=== PATIENT | male | born 1965 | race Caucasian/White ===

== ENCOUNTER → 2016-11-02 | Day surgery (SDC) | payer BC ==
[~2016-11-02] MED LIST: CLONAZEPAM0.5 MG PO; DULOXETINE HCL60 M1 PO; HUMIRA20 MG/0.1; HYDROCHLOROTHIA25 MG PO; HYDROXYZINE HCL10 MG PO; LOSARTAN POTASS50 MG PO; METHOTREXATE2.5 MG PO
--- NOTE | ~2016-11-02 | OR ---
Unit #: [id number] #: [id number] Patient: MASON RIVERA [id number] [facility] [address] [facility] [address] [id number] O MR#: [id number] NAME: MASON RIVERA ROOM: Date of Procedure: 11/02/2016 Admission Date: 11/02/2016 Surgeon: Eleno Joe M.D. : 1965 Attending Physician: Eleno Joe M.D. Primary Care Physician: Brittany Herrmann A.P.R.N. OPERATIVE REPORT PRIMARY CARE PHYSICIAN Dr. Eleno Bojorquez. PREOPERATIVE DIAGNOSIS Colorectal cancer screening. POSTOPERATIVE DIAGNOSIS Single diverticulum in the sigmoid colon. PROCEDURE PERFORMED Colonoscopy to cecum. ANESTHESIA Monitored anesthesia. INDICATIONS FOR PROCEDURE A 51-year-old gentleman sent for initial colorectal cancer screening. DESCRIPTION OF PROCEDURE The patient was admitted to [facility], positively identified, transported to the endoscopy suite and after appropriate monitoring and positioning, he was sedated by the nurse aquatic biologist. On rectal examination, there was no local anorectal pathology. Digital exam was unremarkable. On examination, the prostate revealed a normal prostate. Colonoscope was passed through the anal verge throughout the extent of the colon to the cecum where the appendiceal orifice and ileocecal valve were photo-documented. On careful antegrade and retrograde visualization, no polyps, masses, or other mucosal lesions were noted throughout the colon. In the sigmoid colon, approximately 25 cm from the anal verge, there was a single small diverticulum. The rest of the evaluation was unremarkable. In the rectal vault, I retroflexed the scope and there was no internal hemorrhoidal disease. The patient tolerated the procedure well and was transported to recovery in stable condition. Findings were discussed with his family. At this time, I would recommend a routine surveillance colonoscopy for colorectal cancer screening in 10 years if he remains asymptomatic in the interim. Dictated by... Eleno Joe M.D. RS/modl Unit #: [id number] #: [id number] Patient: MASON RIVERA TD: 11/02/2016 17:03 JOB #: [id number] OPERATIVE REPORT Page 1 of 1 X Eleno Joe MD PROCEDURE OPERATIVE NOTE
--- NOTE | ~2016-11-02 | HP ---
Unit #: [id number] #: [id number] Patient: MASON LARSON [id number] [address] [address] [id number] O MR#: [id number] NAME: MASON LARSON ROOM: Age: 51 Sex: M Admission Date: 11/02/2016 : 1965 Attending Physician: Eleno Joe M.D. Primary Care Physician: Brittany Herrmann A.P.R.N. HISTORY AND PHYSICAL PRIMARY CARE PHYSICIAN Dr. Eleno Bojorquez. HISTORY OF PRESENT ILLNESS Mr. Larson is a 51-year-old gentleman sent for his initial colorectal cancer screening. He denies a family history of colorectal disease, otherwise, asymptomatic. PAST MEDICAL HISTORY Hypertension, osteoarthritis, depression, anxiety. He has sleep apnea and uses a CPAP. He has had previous surgery on his shoulder, knee and ankle. PAST SURGICAL HISTORY He has had previous surgery on his shoulder, knee and ankle. SOCIAL HISTORY , two children, rarely drinks alcohol. He chews tobacco. he works as a chief of police. FAMILY HISTORY Congestive heart failure. ALLERGIES No allergies to medication. MEDICATION 1. Methotrexate. 2. Hydroxyzine. 3. Clonazepam. 4. Losartan. 5. Hydrochlorothiazide. 6. Duloxetine. IMMUNIZATIONS Up to date but he has not had a recent flu vaccine or a pneumonia vaccine. REVIEW OF SYSTEMS Unremarkable. PHYSICAL EXAMINATION GENERAL APPEARANCE: He is awake, alert and oriented. VITAL SIGNS: He is 6'1", 330 lb. Blood pressure is 110/66. Heart rate 47. Respiration 16. Temperature 98.3. HEENT: Unremarkable. Unit #: [id number] #: [id number] Patient: MASON LARSON CARDIAC: Regular rate and rhythm. LUNGS: Clear. ABDOMEN: Soft. EXTREMITIES: No edema. NEUROLOGIC: Grossly intact. ASSESSMENT AND PLAN 51-year-old gentleman sent for initial screening colonoscopy for colorectal cancer screening. I discussed the procedure including risks, benefits, complications, bowel prep. He understands and agrees to proceed. Dictated by Eleno Joe M.D. SHELBIE/sally TD: 11/02/2016 07:50 JOB #: [id number] HISTORY AND PHYSICAL Page 1 of 1 X Eleno Joe MD HISTORY AND PHYSICAL
== END | disposition home or self-care (01) ==
LOC: COPS 05:15
DX: Z12.11 Encounter for screening for malignant neoplasm of colon (principal); K57.30 Diverticulosis of large intestine without perforation or abscess without bleeding; I10 Essential (primary) hypertension; M19.90 Unspecified osteoarthritis, unspecified site; G47.30 Sleep apnea, unspecified; M06.9 Rheumatoid arthritis, unspecified; F41.9 Anxiety disorder, unspecified; F32.9 Major depressive disorder, single episode, unspecified; F17.220 Nicotine dependence, chewing tobacco, uncomplicated; Z79.899 Other long term (current) drug therapy; Z98.890 Other specified postprocedural states
CPT/HCPCS: J2250